=== PATIENT | female | born 1945 | race Caucasian/White ===

== ENCOUNTER 2016-06-24 11:59 | Inpatient (IN) | payer OTHER ==
[~2016-06-24] VITALS: Ht 162.6 cm; Wt 81.4 kg
[~2016-06-24 11:59] MED LIST: Advair 100/50 Diskus IH; Coumadin,Jantoven PO; Dexilant,Kapidex PO; Miralax, Glycolax PO; Oscal 250 w/Vitamin PO; Percocet 5/325,Endoc PO; Pravachol PO; Toprol XL PO; [UNRECOGNIZED DRUG - OTHER] PO; celeBREX PO
[2016-06-24 13:43] LABS: TROP-I INTERPRETATION NEGATIVE; TROPONIN-I 0.02 ng/mL (0.0-0.30)
[2016-06-24 14:13] LABS: HEMATOCRIT 31.3 % (36.0-46.0); MCH 28.9 PG (29.0-34.0); MCHC 31.6 G/DL (30.0-36.0); MCV 91.5 FL (83-99); MEAN PLAT.VOLUME 12.3 uM^3 (9.5-12.4); PLATELET COUNT 249 K/uL (156-360); RBC DIS.WIDTH-CV 22.5 % (11.8-14.6); RBC DIS.WIDTH-SD 65.5 % (39-53); RED BLOOD COUNT 3.42 M/uL (3.80-5.20); WHITE BLOOD COUNT 12.3 K/uL (4.1-10.2)
[2016-06-24 14:29] LABS: EOSINOPHIL (%) 0.2 % (0-5); IMMATURE GRANULOCYTE (%) 1.7 % (0.0-0.7); IMMATURE GRANULOCYTE COUNT 0.2 K/uL; INSTRUMENT ABS NEUTROPHIL CT 10.1 K/uL; LYMPHOCYTE COUNT 0.8 K/uL (1.0-2.8); MONOCYTE (%) 9.1 % (3-12); MONOCYTE COUNT 1.1 K/uL (0-0.8); NEUTROPHIL (%) 82.4 % (45-76); NEUTROPHIL COUNT 10.1 K/uL (1.8-6.4)
[2016-06-24 15:35] LABS: CHLORIDE 125 mEq/L (99-109); POTASSIUM 3.1 mEq/L (3.7-5.4); SODIUM 158 mEq/L (136-147)
[2016-06-24 15:37] LABS: GLUCOSE 144 mg/dL (70-99)
[2016-06-24 15:38] LABS: ANION GAP 11 MEQ/L (2-14)
[2016-06-24 15:39] LABS: TOTAL BILIRUBIN 0.4 mg/dL (0.0-1.0)
[2016-06-24 15:40] LABS: ALKALINE PHOSPHATASE 185 IU/L (3-129)
[2016-06-24 15:41] LABS: GFR ESTIMATE (CALCULATED) 47 mL/min/
[2016-06-24 15:42] LABS: UREA NITROGEN (BUN) 52 mg/dL (9-23)
[2016-06-24 15:44] LABS: LIPASE 34 U/L (1.0-51.0)
[2016-06-24] MEDS ORDERED: ZOSYN 3.3753.375 GM IV (17:15)
[2016-06-24] MEDS ORDERED: FLAGYL500 MG/100 IV (17:16)
[2016-06-24] MEDS ORDERED: METOPROLOL TART25 MG PO (17:17)
[2016-06-24] MEDS ORDERED: TRAMADOL HCL50 MG PO (17:18)
[2016-06-24] MEDS ORDERED: CARDIZEM30 MG PO (17:19)
[2016-06-24] MEDS ORDERED: POTASSIUM20 MEQ/11 PO (17:20)
[2016-06-24] MEDS ORDERED: METOCLOPRAM5 MG/5 ML PO (17:20)
[2016-06-24] MEDS ORDERED: PRAVASTATIN SOD40 MG GT (17:21)
[2016-06-24] MEDS ORDERED: ELIQUIS5 MG PO (17:21)
[2016-06-24] MEDS ORDERED: CALCITRATE + D1 EACH PO (17:22)
[2016-06-24] MEDS ORDERED: PRAVACHOL40 MG PO (17:22)
[2016-06-24] MEDS ORDERED: MULTAQ400 MG PO (17:23)
[2016-06-24] MEDS ORDERED: DEXILANT60 MG PO (17:23)
[2016-06-24] MEDS ORDERED: LINZESS290 MCG PO (17:24)
[2016-06-24] MEDS ORDERED: ACETAMINOPHEN325 M3 PO (17:24)
[2016-06-24] MEDS ORDERED: ALBUTEROL2.5 MG/3 M IH (17:25)
[2016-06-24] MEDS ORDERED: ADVAIR 250/501 DISK IH (17:25)
[2016-06-24] MEDS ORDERED: [UNRECOGNIZED DRUG - SUPPLY] TP (17:26)
[2016-06-24] MEDS ORDERED: SANTYL30 GM TP (17:26)
[2016-06-24] MEDS ORDERED: AQUAPHOR OINTM105 GM TP (17:27)
[2016-06-24] MEDS ORDERED: CALMOSEPTINE O120 GM TP (17:27)
[2016-06-24] MEDS ORDERED: CASPOFUNGIN IV (18:31)
[2016-06-24 23:40] VITALS: BP 126/66
[2016-06-25 03:56] LABS: ADD MIUA? YES; BILIRUBIN NEGATIVE; BLOOD MODERATE; COLOR YELLOW ((YELLOW)); GLUCOSE (STRIP) NEGATIVE; KETONES NEGATIVE; LEUKOCYTES NEGATIVE; NITRITE NEGATIVE; PROTEIN (STRIP) NEGATIVE; SPECIFIC GRAVITY 1.011 (1.000-1.030); UROBILINOGEN 0.2 MG/DL (0.2-1.0)
[2016-06-25 04:10] LABS: BACTERIA NONE SEEN /HPF; EPITHELIAL CELLS RARE /HPF; HYALINE CASTS 0-5 /LPF; MUCUS TRACE /LPF; RED BLOOD CELLS 0-5 /HPF (0-5); UCUL ADDED? NO; WHITE BLOOD CELLS 0-5 /HPF (0-5)
[2016-06-25 04:30] LABS: INFLUENZA A VIRAL ANTIGEN NEGATIVE; INFLUENZA B VIRAL ANTIGEN NEGATIVE
[2016-06-25 07:30] VITALS: BP 191/86
[2016-06-25 08:35] LABS: INTERNAL CONTROL VALID? YES
[2016-06-25 09:40] LABS: EOSINOPHIL (%) 0.5 % (0-5); EOSINOPHIL COUNT 0.1 K/uL (0-0.3); HEMATOCRIT 30.7 % (36.0-46.0); IMMATURE GRANULOCYTE (%) 1.4 % (0.0-0.7); IMMATURE GRANULOCYTE COUNT 0.2 K/uL; INSTRUMENT ABS NEUTROPHIL CT 10.4 K/uL; LYMPHOCYTE COUNT 0.9 K/uL (1.0-2.8); MCH 29.4 PG (29.0-34.0); MCHC 31.6 G/DL (30.0-36.0); MEAN PLAT.VOLUME 12.3 uM^3 (9.5-12.4); MONOCYTE (%) 11.7 % (3-12); MONOCYTE COUNT 1.5 K/uL (0-0.8); NEUTROPHIL (%) 79.6 % (45-76); NEUTROPHIL COUNT 10.4 K/uL (1.8-6.4); PLATELET COUNT 245 K/uL (156-360); RBC DIS.WIDTH-CV 22.9 % (11.8-14.6); RBC DIS.WIDTH-SD 70.4 % (39-53)
[2016-06-25 09:54] LABS: CHLORIDE 125 mEq/L (99-109); POTASSIUM 3.4 mEq/L (3.7-5.4); SODIUM 160 mEq/L (136-147)
[2016-06-25 09:56] LABS: GLUCOSE 165 mg/dL (70-99)
[2016-06-25 09:57] LABS: ANION GAP 13 MEQ/L (2-14)
[2016-06-25 10:00] LABS: GFR ESTIMATE (CALCULATED) 47 mL/min/
[2016-06-25 10:01] LABS: UREA NITROGEN (BUN) 48 mg/dL (9-23)
[2016-06-25 15:20] VITALS: BP 180/80
[2016-06-25 18:45] LABS: CHLORIDE 125 mEq/L (99-109); POTASSIUM 3.3 mEq/L (3.7-5.4); SODIUM 157 mEq/L (136-147)
[2016-06-25 18:47] LABS: GLUCOSE 165 mg/dL (70-99)
[2016-06-25 18:48] LABS: ANION GAP 11 MEQ/L (2-14)
[2016-06-25 18:51] LABS: GFR ESTIMATE (CALCULATED) 47 mL/min/; UREA NITROGEN (BUN) 46 mg/dL (9-23)
[2016-06-26] VITALS: BP 168/71
[2016-06-26 06:56] VITALS: BP 175/74
[2016-06-26 07:34] LABS: EOSINOPHIL (%) 1.4 % (0-5); EOSINOPHIL COUNT 0.2 K/uL (0-0.3); HEMATOCRIT 29.9 % (36.0-46.0); IMMATURE GRANULOCYTE (%) 1.5 % (0.0-0.7); IMMATURE GRANULOCYTE COUNT 0.2 K/uL; INSTRUMENT ABS NEUTROPHIL CT 9.5 K/uL; LYMPHOCYTE COUNT 0.9 K/uL (1.0-2.8); MCH 28.7 PG (29.0-34.0); MCHC 30.1 G/DL (30.0-36.0); MCV 95.2 FL (83-99); MEAN PLAT.VOLUME 12.3 uM^3 (9.5-12.4); MONOCYTE (%) 13.5 % (3-12); MONOCYTE COUNT 1.7 K/uL (0-0.8); NEUTROPHIL (%) 76.2 % (45-76); NEUTROPHIL COUNT 9.5 K/uL (1.8-6.4); PLATELET COUNT 221 K/uL (156-360); RBC DIS.WIDTH-CV 22.6 % (11.8-14.6); RBC DIS.WIDTH-SD 75.2 % (39-53); RED BLOOD COUNT 3.14 M/uL (3.80-5.20); WHITE BLOOD COUNT 12.4 K/uL (4.1-10.2)
[2016-06-26 07:45] LABS: ANION GAP 9 MEQ/L (2-14); CHLORIDE 119 MEQ/L (99-109); GFR ESTIMATE (CALCULATED) 47 mL/min/; GLUCOSE 178 mg/dL (70-99); MAGNESIUM 1.6 mg/dl (1.3-2.7); POTASSIUM 3.9 MEQ/L (3.7-5.4); SAMPLE HEMOLYSIS CHECK 0; SAMPLE ICTERIC CHECK 0; SAMPLE LIPEMIA CHECK 0; SODIUM 151 MEQ/L (136-147); UREA NITROGEN (BUN) 46 mg/dL (9-23)
[2016-06-26 17:19] VITALS: BP 178/80
[2016-06-26 23:01] VITALS: BP 179/89
[2016-06-27 09:11] VITALS: BP 120/72
[2016-06-27 11:07] LABS: EOSINOPHIL (%) 0.4 % (0-5); EOSINOPHIL COUNT 0.1 K/uL (0-0.3); HEMATOCRIT 30.5 % (36.0-46.0); IMMATURE GRANULOCYTE (%) 1.5 % (0.0-0.7); IMMATURE GRANULOCYTE COUNT 0.2 K/uL; INSTRUMENT ABS NEUTROPHIL CT 10.9 K/uL; LYMPHOCYTE COUNT 0.7 K/uL (1.0-2.8); MCH 29.6 PG (29.0-34.0); MCHC 31.5 G/DL (30.0-36.0); MCV 94.1 FL (83-99); MEAN PLAT.VOLUME 12.4 uM^3 (9.5-12.4); MONOCYTE COUNT 1.2 K/uL (0-0.8); NEUTROPHIL (%) 83.2 % (45-76); NEUTROPHIL COUNT 10.9 K/uL (1.8-6.4); PLATELET COUNT 210 K/uL (156-360); RBC DIS.WIDTH-CV 22.1 % (11.8-14.6); RBC DIS.WIDTH-SD 71.7 % (39-53); RED BLOOD COUNT 3.24 M/uL (3.80-5.20); WHITE BLOOD COUNT 13.1 K/uL (4.1-10.2)
[2016-06-27 11:28] LABS: ANION GAP 14 MEQ/L (2-14); C-REACTIVE PROTEIN 11.6 MG/L (0-10); CHLORIDE 116 MEQ/L (99-109); GFR ESTIMATE (CALCULATED) 47 mL/min/; GLUCOSE 238 mg/dL (70-99); POTASSIUM 3.9 MEQ/L (3.7-5.4); SAMPLE HEMOLYSIS CHECK 0; SAMPLE ICTERIC CHECK 0; SAMPLE LIPEMIA CHECK 0; SODIUM 150 MEQ/L (136-147); UREA NITROGEN (BUN) 36 mg/dL (9-23)
[2016-06-27 12:36] VITALS: BP 122/63
[2016-06-27 16:03] VITALS: BP 116/70
[2016-06-28 00:02] VITALS: BP 119/60
[2016-06-28 01:30] VITALS: BP 125/68
[2016-06-28 06:52] LABS: ANION GAP 10 MEQ/L (2-14); CHLORIDE 112 MEQ/L (99-109); GFR ESTIMATE (CALCULATED) 52 mL/min/; GLUCOSE 134 mg/dL (70-99); POTASSIUM 3.6 MEQ/L (3.7-5.4); SAMPLE HEMOLYSIS CHECK 1; SAMPLE ICTERIC CHECK 0; SAMPLE LIPEMIA CHECK 0; SODIUM 146 MEQ/L (136-147); UREA NITROGEN (BUN) 30 mg/dL (9-23)
[2016-06-28 08:25] VITALS: BP 142/69
[2016-06-28 09:55] VITALS: BP 121/57
[2016-06-28 10:19] LABS: HEMATOCRIT 31.6 % (36.0-46.0); MCH 28.9 PG (29.0-34.0); MCHC 31.3 G/DL (30.0-36.0); MCV 92.1 FL (83-99); RBC DIS.WIDTH-CV 22.1 % (11.8-14.6); RBC DIS.WIDTH-SD 71.9 % (39-53); RED BLOOD COUNT 3.43 M/uL (3.80-5.20); WHITE BLOOD COUNT 10.6 K/uL (4.1-10.2)
[2016-06-28 10:29] LABS: EOSINOPHIL (%) 1.2 % (0-5); EOSINOPHIL COUNT 0.1 K/uL (0-0.3); IMMATURE GRANULOCYTE (%) 1.7 % (0.0-0.7); IMMATURE GRANULOCYTE COUNT 0.2 K/uL; INSTRUMENT ABS NEUTROPHIL CT 8.1 K/uL; LYMPHOCYTE COUNT 0.9 K/uL (1.0-2.8); MEAN PLAT.VOLUME 12.2 uM^3 (9.5-12.4); MONOCYTE (%) 11.8 % (3-12); MONOCYTE COUNT 1.3 K/uL (0-0.8); NEUTROPHIL (%) 76.4 % (45-76); NEUTROPHIL COUNT 8.1 K/uL (1.8-6.4)
[2016-06-28 10:30] LABS: PLATELET COUNT 127 K/uL (156-360)
[2016-06-28 13:38] LABS: TROP-I INTERPRETATION NEGATIVE; TROPONIN-I < 0.01 ng/mL (0.0-0.30)
[2016-06-28 15:15] VITALS: BP 166/74
[2016-06-28 16:49] LABS: TROP-I INTERPRETATION NEGATIVE; TROPONIN-I 0.02 ng/mL (0.0-0.30)
[2016-06-28 23:09] LABS: TROP-I INTERPRETATION NEGATIVE; TROPONIN-I 0.01 ng/mL (0.0-0.30)
[2016-06-28 23:24] VITALS: BP 128/68
[2016-06-29 07:09] VITALS: BP 155/72
[2016-06-29 08:40] LABS: EOSINOPHIL (%) 1.9 % (0-5); EOSINOPHIL COUNT 0.2 K/uL (0-0.3); HEMATOCRIT 29.2 % (36.0-46.0); IMMATURE GRANULOCYTE (%) 1.5 % (0.0-0.7); IMMATURE GRANULOCYTE COUNT 0.2 K/uL; INSTRUMENT ABS NEUTROPHIL CT 8.6 K/uL; LYMPHOCYTE COUNT 0.9 K/uL (1.0-2.8); MCH 29.5 PG (29.0-34.0); MCHC 31.5 G/DL (30.0-36.0); MCV 93.6 FL (83-99); MONOCYTE (%) 13.8 % (3-12); MONOCYTE COUNT 1.6 K/uL (0-0.8); NEUTROPHIL (%) 74.8 % (45-76); NEUTROPHIL COUNT 8.6 K/uL (1.8-6.4); RBC DIS.WIDTH-CV 21.3 % (11.8-14.6); RBC DIS.WIDTH-SD 71.3 % (39-53); RED BLOOD COUNT 3.12 M/uL (3.80-5.20); WHITE BLOOD COUNT 11.5 K/uL (4.1-10.2)
[2016-06-29 08:41] LABS: PLATELET COUNT 171 K/uL (156-360)
[2016-06-29 08:52] LABS: ANION GAP 11 MEQ/L (2-14); CHLORIDE 107 MEQ/L (99-109); GFR ESTIMATE (CALCULATED) 58 mL/min/; GLUCOSE 149 mg/dL (70-99); POTASSIUM 3.5 MEQ/L (3.7-5.4); SAMPLE HEMOLYSIS CHECK 0; SAMPLE ICTERIC CHECK 0; SAMPLE LIPEMIA CHECK 0; SODIUM 143 MEQ/L (136-147); UREA NITROGEN (BUN) 22 mg/dL (9-23)
[2016-06-29] MEDS ORDERED: METRONIDAZOLE500 MG PO (10:58)
[2016-06-29] MEDS ORDERED: TRAMADOL HCL50 MG PO (11:05)
[2016-06-29 15:46] VITALS: BP 135/77
== END 2016-06-29 16:45 | DRG 357 ==
LOC: EME 11:59 → EDOF 22:08 → 5EAST 22:08
PROVIDERS: Emergency Medicine; Hospitalist; Internal Medicine; Internal Medicine Infectious Disease; Internal Medicine Nephrology
DX: K65.1 Peritoneal abscess (principal); N17.9 Acute kidney failure, unspecified; J90 Pleural effusion, not elsewhere classified; E46 Unspecified protein-calorie malnutrition; E87.1 Hypo-osmolality and hyponatremia; G72.9 Myopathy, unspecified; Z93.1 Gastrostomy status; I48.2 Chronic atrial fibrillation; E87.0 Hyperosmolality and hypernatremia; R13.10 Dysphagia, unspecified; R07.9 Chest pain, unspecified; I48.91 Unspecified atrial fibrillation; I10 Essential (primary) hypertension; E87.6 Hypokalemia; D64.9 Anemia, unspecified; J45.909 Unspecified asthma, uncomplicated; K21.9 Gastro-esophageal reflux disease without esophagitis; D72.829 Elevated white blood cell count, unspecified; J98.11 Atelectasis; Z93.3 Colostomy status; Z98.0 Intestinal bypass and anastomosis status
CPT/HCPCS: 71010; 71275; 74177; 74230; 76770; 80048; 80048 91; 80053; 81003; 83605; 83690; 83735; 83935; 84100; 84145 90; 84300; 84484; 85025; 85025 GA; 86140; 87040; 87070; 87205; 87449; 87502; 92526 GN; 92610 GN; 92611 GN; 93005; 94010; 94640; 94640 76; 94760; 99202; 99281; 99285; J0456; J0692; J2543; J3370; J3480; J7040; J7050; J7060; J7070; S0030

== ENCOUNTER 2016-07-12 12:12 | Inpatient (IN) | payer OTHER ==
[~2016-07-12] VITALS: Ht 162.6 cm; Wt 73.4 kg
[~2016-07-12 12:12] MED LIST changes: +ACETAMINOPHEN325 M3 PO; +ADVAIR 250/501 DISK IH; +ALBUTEROL2.5 MG/3 M IH; +AQUAPHOR OINTM105 GM TP; +CALCITRATE + D1 EACH PO; +CALMOSEPTINE O120 GM TP; +CARDIZEM30 MG PO; +CASPOFUNGIN IV; +DEXILANT60 MG PO; +ELIQUIS5 MG PO; +FLAGYL500 MG/100 IV; +LINZESS290 MCG PO; +METOCLOPRAM5 MG/5 ML PO; +METOPROLOL TART25 MG PO; +METRONIDAZOLE500 MG PO; +MULTAQ400 MG PO; +POTASSIUM20 MEQ/11 PO; +PRAVACHOL40 MG PO; +PRAVASTATIN SOD40 MG GT; +SANTYL30 GM TP; +TRAMADOL HCL50 MG PO; +ZOSYN 3.3753.375 GM IV; +[UNRECOGNIZED DRUG - SUPPLY] TP
[2016-07-12 13:30] LABS: EOSINOPHIL (%) 0 % (0-5); HEMATOCRIT 29.8 % (36.0-46.0); IMMATURE GRANULOCYTE (%) 3.1 % (0.0-0.7); IMMATURE GRANULOCYTE COUNT 0.4 K/uL; INSTRUMENT ABS NEUTROPHIL CT 10.6 K/uL; LYMPHOCYTE COUNT 0.8 K/uL (1.0-2.8); MCH 29.1 PG (29.0-34.0); MCHC 30.5 G/DL (30.0-36.0); MCV 95.2 FL (83-99); MEAN PLAT.VOLUME 10.1 uM^3 (9.5-12.4); MONOCYTE (%) 11.4 % (3-12); MONOCYTE COUNT 1.5 K/uL (0-0.8); NEUTROPHIL (%) 79.4 % (45-76); NEUTROPHIL COUNT 10.6 K/uL (1.8-6.4); RBC DIS.WIDTH-CV 19.5 % (11.8-14.6); RBC DIS.WIDTH-SD 67.6 % (39-53); RED BLOOD COUNT 3.13 M/uL (3.80-5.20); WHITE BLOOD COUNT 13.3 K/uL (4.1-10.2)
[2016-07-12 13:31] LABS: PLATELET COUNT 234 K/uL (156-360)
[2016-07-12 13:36] LABS: CHLORIDE 103 mEq/L (99-109); POTASSIUM 5.2 mEq/L (3.7-5.4); SODIUM 137 mEq/L (136-147)
[2016-07-12 13:38] LABS: GLUCOSE 197 mg/dL (70-99)
[2016-07-12 13:39] LABS: ANION GAP 8 MEQ/L (2-14)
[2016-07-12 13:42] LABS: GFR ESTIMATE (CALCULATED) > 59 mL/min/
[2016-07-12 13:43] LABS: UREA NITROGEN (BUN) 19 mg/dL (9-23)
[2016-07-12 14:40] LABS: ADD MIUA? YES; BILIRUBIN NEGATIVE; BLOOD NEGATIVE; COLOR YELLOW ((YELLOW)); GLUCOSE (STRIP) 50; KETONES NEGATIVE; LEUKOCYTES NEGATIVE; NITRITE NEGATIVE; PROTEIN (STRIP) 100; SPECIFIC GRAVITY 1.024 (1.000-1.030); UROBILINOGEN 0.2 MG/DL (0.2-1.0)
[2016-07-12 14:47] LABS: BACTERIA RARE /HPF; EPITHELIAL CELLS RARE /HPF; HYALINE CASTS 20-30 /LPF; MUCUS TRACE /LPF; UCUL ADDED? NO; WHITE BLOOD CELLS 0-5 /HPF (0-5)
[2016-07-12 15:01] LABS: TROP-I INTERPRETATION NEGATIVE; TROPONIN-I < 0.01 ng/mL (0.0-0.30)
[2016-07-12] MEDS ORDERED: AQUAPHOR W-NAT50 GM TP (16:56)
[2016-07-12] MEDS ORDERED: CALMOSEPTINE O120 GM TP (16:57)
[2016-07-12] MEDS ORDERED: METOPROLOL TART50 MG PO (16:58)
[2016-07-12] MEDS ORDERED: MYCAMINE100 MG IV (17:00)
[2016-07-12] MEDS ORDERED: ASCORBIC ACID500 MG PO (17:04)
[2016-07-12] MEDS ORDERED: ZINC SULFATE220 M1 PO (17:04)
[2016-07-12] MEDS ORDERED: METOCLOPRAMIDE H5 MG PO (17:06)
[2016-07-12] MEDS ORDERED: K-DUR20 MEQ PO (17:06)
[2016-07-12] MEDS ORDERED: ZOSYN 3.3753.375 GM IV (17:07)
[2016-07-12] MEDS ORDERED: ACETAMINOPHEN325 M1 PO (17:10)
[2016-07-12] MEDS ORDERED: [UNRECOGNIZED DRUG - OTHER] TP (17:14)
[2016-07-12] MEDS ORDERED: ANTIBIOTIC TP (17:14)
[2016-07-12] MEDS ORDERED: ADVAIR 250/501 DISK IH (17:15)
[2016-07-12] MEDS ORDERED: ENSURE ENLIVE237 ML PO (17:15)
[2016-07-12 18:32] LABS: MAGNESIUM 1.4 mg/dL (1.3-2.7)
[2016-07-12 21:00] VITALS: BP 163/88
[2016-07-12 22:00] VITALS: BP 155/76
[2016-07-12 23:00] VITALS: BP 156/82
[2016-07-12 23:12] LABS: METH RESISTANT S AUREUS PCR NEGATIVE (NEGATIVE)
[2016-07-12 23:12] LABS: TROP-I INTERPRETATION NEGATIVE; TROPONIN-I < 0.01 ng/mL (0.0-0.30)
[2016-07-12 23:15] LABS: PROBE CHECK PASS; SPECIMEN PROCESSING CONTROL PASS
[2016-07-13] VITALS (8 sets, daily range): BP systolic 125–159; BP diastolic 55–86
[2016-07-13 04:04] LABS: HEMATOCRIT 28.4 % (36.0-46.0); MCH 29.3 PG (29.0-34.0); MCV 94.7 FL (83-99); MEAN PLAT.VOLUME 10.8 uM^3 (9.5-12.4); PLATELET COUNT 208 K/uL (156-360); RBC DIS.WIDTH-CV 19.9 % (11.8-14.6); RBC DIS.WIDTH-SD 68.6 % (39-53); WHITE BLOOD COUNT 9.8 K/uL (4.1-10.2)
[2016-07-13 04:28] LABS: TROP-I INTERPRETATION NEGATIVE; TROPONIN-I 0.03 ng/mL (0.0-0.30)
[2016-07-13 05:09] LABS: CHLORIDE 100 mEq/L (99-109); SODIUM 139 mEq/L (136-147)
[2016-07-13 05:11] LABS: GLUCOSE 126 mg/dL (70-99)
[2016-07-13 05:12] LABS: ANION GAP 9 MEQ/L (2-14)
[2016-07-13 05:13] LABS: TOTAL BILIRUBIN 0.3 mg/dL (0.0-1.0)
[2016-07-13 05:14] LABS: ALKALINE PHOSPHATASE 141 IU/L (3-129)
[2016-07-13 05:15] LABS: GFR ESTIMATE (CALCULATED) > 59 mL/min/; POTASSIUM 3.9 mEq/L (3.7-5.4)
[2016-07-13 05:16] LABS: UREA NITROGEN (BUN) 18 mg/dL (9-23)
[2016-07-14] VITALS (7 sets, daily range): BP systolic 136–169; BP diastolic 62–87
[2016-07-14 05:44] LABS: C DIFF TOXIN NEGATIVE (NEGATIVE)
[2016-07-14 05:45] LABS: PROBE CHECK PASS; SPECIMEN PROCESSING CONTROL PASS
[2016-07-14 07:04] LABS: EOSINOPHIL (%) 1.3 % (0-5); EOSINOPHIL COUNT 0.1 K/uL (0-0.3); HEMATOCRIT 26.2 % (36.0-46.0); IMMATURE GRANULOCYTE (%) 2.7 % (0.0-0.7); IMMATURE GRANULOCYTE COUNT 0.3 K/uL; INSTRUMENT ABS NEUTROPHIL CT 7.5 K/uL; LYMPHOCYTE COUNT 0.9 K/uL (1.0-2.8); MCH 29.5 PG (29.0-34.0); MCHC 31.7 G/DL (30.0-36.0); MCV 93.2 FL (83-99); MEAN PLAT.VOLUME 10.5 uM^3 (9.5-12.4); MONOCYTE COUNT 1.4 K/uL (0-0.8); NEUTROPHIL (%) 73.3 % (45-76); NEUTROPHIL COUNT 7.5 K/uL (1.8-6.4); PLATELET COUNT 231 K/uL (156-360); RBC DIS.WIDTH-CV 19.5 % (11.8-14.6); RBC DIS.WIDTH-SD 65.6 % (39-53); RED BLOOD COUNT 2.81 M/uL (3.80-5.20); WHITE BLOOD COUNT 10.2 K/uL (4.1-10.2)
[2016-07-14 07:49] LABS: ANION GAP 12 MEQ/L (2-14); CHLORIDE 97 MEQ/L (99-109); GFR ESTIMATE (CALCULATED) > 59 mL/min/; GLUCOSE 119 mg/dL (70-99); POTASSIUM 3.6 MEQ/L (3.7-5.4); SAMPLE HEMOLYSIS CHECK 0; SAMPLE ICTERIC CHECK 0; SAMPLE LIPEMIA CHECK 0; SODIUM 139 MEQ/L (136-147); UREA NITROGEN (BUN) 20 mg/dL (9-23)
[2016-07-14 09:53] LABS: INTER. NORMALIZED RATIO 1.2; PROTHROMBIN TIME 12.1 (9.2-11.2); PTT 25.1 (25-32)
[2016-07-15] VITALS (8 sets, daily range): BP systolic 130–162; BP diastolic 62–90
[2016-07-15 05:55] LABS: EOSINOPHIL (%) 0.4 % (0-5); HEMATOCRIT 26.9 % (36.0-46.0); IMMATURE GRANULOCYTE (%) 2.5 % (0.0-0.7); IMMATURE GRANULOCYTE COUNT 0.3 K/uL; INSTRUMENT ABS NEUTROPHIL CT 8.4 K/uL; MCH 30.4 PG (29.0-34.0); MCHC 33.1 G/DL (30.0-36.0); MCV 91.8 FL (83-99); MEAN PLAT.VOLUME 10.2 uM^3 (9.5-12.4); MONOCYTE (%) 14.4 % (3-12); MONOCYTE COUNT 1.6 K/uL (0-0.8); NEUTROPHIL (%) 74.1 % (45-76); NEUTROPHIL COUNT 8.4 K/uL (1.8-6.4); PLATELET COUNT 247 K/uL (156-360); RBC DIS.WIDTH-CV 19.6 % (11.8-14.6); RBC DIS.WIDTH-SD 63.7 % (39-53); RED BLOOD COUNT 2.93 M/uL (3.80-5.20); WHITE BLOOD COUNT 11.3 K/uL (4.1-10.2)
[2016-07-15 06:24] LABS: ANION GAP 12 MEQ/L (2-14); CHLORIDE 96 MEQ/L (99-109); GFR ESTIMATE (CALCULATED) > 59 mL/min/; GLUCOSE 141 mg/dL (70-99); POTASSIUM 3.2 MEQ/L (3.7-5.4); SAMPLE HEMOLYSIS CHECK 0; SAMPLE ICTERIC CHECK 0; SAMPLE LIPEMIA CHECK 0; SODIUM 141 MEQ/L (136-147); UREA NITROGEN (BUN) 14 mg/dL (9-23)
[2016-07-15 10:56] LABS: TYPE OF FLUID PLEURAL
[2016-07-15 11:51] LABS: BODY FLUID RBC'S 14000 /MM^3 (0-100); BODY FLUID WBC'S 666 /MM^3 (0-500)
[2016-07-15 11:52] LABS: BODY FLUID EOSINOPHILS 1 % (0-25); MONONUCLEAR WBC'S 74 %; POLYNUCLEAR WBC'S 25 % (0-25)
[2016-07-15 12:04] LABS: BODY FLUID LDH 119 IU/L; BODY FLUID PROTEIN < 3.0 G/DL
[2016-07-16 00:47] VITALS: BP 150/78
[2016-07-16 03:59] VITALS: BP 141/56
[2016-07-16 05:50] LABS: HEMATOCRIT 31.2 % (36.0-46.0); MCH 29.9 PG (29.0-34.0); MCHC 32.1 G/DL (30.0-36.0); MCV 93.1 FL (83-99); MEAN PLAT.VOLUME 10.3 uM^3 (9.5-12.4); PLATELET COUNT 248 K/uL (156-360); RBC DIS.WIDTH-SD 67.2 % (39-53); RED BLOOD COUNT 3.35 M/uL (3.80-5.20); WHITE BLOOD COUNT 11.6 K/uL (4.1-10.2)
[2016-07-16 06:21] LABS: ANION GAP 12 MEQ/L (2-14); CHLORIDE 97 MEQ/L (99-109); GFR ESTIMATE (CALCULATED) > 59 mL/min/; GLUCOSE 124 mg/dL (70-99); SAMPLE HEMOLYSIS CHECK 0; SAMPLE ICTERIC CHECK 0; SAMPLE LIPEMIA CHECK 0; SODIUM 140 MEQ/L (136-147); UREA NITROGEN (BUN) 10 mg/dL (9-23)
[2016-07-16 06:26] LABS: POTASSIUM 3.9 MEQ/L (3.7-5.4)
[2016-07-16 07:15] VITALS: BP 156/68
[2016-07-16 11:30] VITALS: BP 157/80
[2016-07-16 16:57] VITALS: BP 136/78
[2016-07-17 00:01] VITALS: BP 156/84
[2016-07-17 04:23] VITALS: BP 143/76
[2016-07-17 05:29] LABS: HEMATOCRIT 28.2 % (36.0-46.0); MCHC 32.6 G/DL (30.0-36.0); MCV 91.9 FL (83-99); MEAN PLAT.VOLUME 10.6 uM^3 (9.5-12.4); PLATELET COUNT 253 K/uL (156-360); RBC DIS.WIDTH-CV 19.9 % (11.8-14.6); RBC DIS.WIDTH-SD 65.2 % (39-53); RED BLOOD COUNT 3.07 M/uL (3.80-5.20); WHITE BLOOD COUNT 11.7 K/uL (4.1-10.2)
[2016-07-17 05:59] LABS: ANION GAP 11 MEQ/L (2-14); CHLORIDE 97 MEQ/L (99-109); GFR ESTIMATE (CALCULATED) > 59 mL/min/; GLUCOSE 122 mg/dL (70-99); SAMPLE HEMOLYSIS CHECK 0; SAMPLE ICTERIC CHECK 0; SAMPLE LIPEMIA CHECK 0; SODIUM 137 MEQ/L (136-147); UREA NITROGEN (BUN) 9 mg/dL (9-23)
[2016-07-17 07:48] VITALS: BP 154/70
[2016-07-17 09:01] LABS: MAGNESIUM 1.3 mg/dl (1.3-2.7)
[2016-07-17 12:46] VITALS: BP 132/69
[2016-07-17 15:30] VITALS: BP 125/71
[2016-07-17 20:14] VITALS: BP 147/76
[2016-07-18] VITALS (10 sets, daily range): BP systolic 132–169; BP diastolic 72–97
[2016-07-18 06:02] LABS: HEMATOCRIT 26.5 % (36.0-46.0); MCH 30.5 PG (29.0-34.0); MCHC 32.8 G/DL (30.0-36.0); MEAN PLAT.VOLUME 10.5 uM^3 (9.5-12.4); PLATELET COUNT 271 K/uL (156-360); RBC DIS.WIDTH-CV 19.9 % (11.8-14.6); RBC DIS.WIDTH-SD 66.8 % (39-53); RED BLOOD COUNT 2.85 M/uL (3.80-5.20); WHITE BLOOD COUNT 10.5 K/uL (4.1-10.2)
[2016-07-18 06:55] LABS: ANION GAP 11 MEQ/L (2-14); CHLORIDE 99 MEQ/L (99-109); GFR ESTIMATE (CALCULATED) > 59 mL/min/; GLUCOSE 143 mg/dL (70-99); SAMPLE HEMOLYSIS CHECK 0; SAMPLE ICTERIC CHECK 0; SAMPLE LIPEMIA CHECK 0; SODIUM 138 MEQ/L (136-147); UREA NITROGEN (BUN) 11 mg/dL (9-23)
[2016-07-18 06:58] LABS: POTASSIUM 3.8 MEQ/L (3.7-5.4)
[2016-07-18] MEDS ORDERED: ELIQUIS5 MG PO (09:01)
[2016-07-18] MEDS ORDERED: K-DUR20 MEQ PO (09:01)
[2016-07-18] MEDS ORDERED: DIGOXIN125 MCG PO (09:01)
[2016-07-18] MEDS ORDERED: MYCAMINE100 MG IV (09:01)
[2016-07-18] MEDS ORDERED: ZOSYN 3.3753.375 GM IV (09:01)
[2016-07-18] MEDS ORDERED: DILTIAZEM 24HR120 MG PO (09:01)
[2016-07-18] MEDS ORDERED: METOPROLOL TART75 MG PO (15:42)
[2016-07-18] MEDS ORDERED: CARDIZEM CD180 MG PO (15:43)
[2016-07-19 03:26] VITALS: BP 134/78
[2016-07-19 08:20] VITALS: BP 156/89
[2016-07-19 12:19] VITALS: BP 130/87
== END 2016-07-19 14:23 | DRG 308 ==
LOC: EME 12:12 → 5SOUTH 17:13 → 4EAST 17:13 → EDOF 17:13 → 4EAST 20:59 → 5SOUTH 07-17 14:44
PROVIDERS: Emergency Medicine; Hospitalist; Internal Medicine; Nurse Practitioner Family; Radiology Diagnostic Radiology
PROC: 0W9B3ZZ Drainage of Left Pleural Cavity, Percutaneous Approach (ICD-10-PCS; principal; 2016-07-12)
PROC: 30233N1 Transfusion of Nonautologous Red Blood Cells into Peripheral Vein, Percutaneous Approach (ICD-10-PCS; 2016-07-18)
DX: I48.2 Chronic atrial fibrillation (principal); I50.33 Acute on chronic diastolic (congestive) heart failure; K75.0 Abscess of liver; K65.1 Peritoneal abscess; J86.9 Pyothorax without fistula; G72.81 Critical illness myopathy; E87.2 Acidosis; T81.4XXA Infection following a procedure, initial encounter; T81.30XA Disruption of wound, unspecified, initial encounter; J45.909 Unspecified asthma, uncomplicated; I11.0 Hypertensive heart disease with heart failure; R18.8 Other ascites; K21.9 Gastro-esophageal reflux disease without esophagitis; J98.11 Atelectasis; D64.9 Anemia, unspecified; Z74.01 Bed confinement status; Z85.038 Personal history of other malignant neoplasm of large intestine; Z93.3 Colostomy status; Z79.01 Long term (current) use of anticoagulants; Z68.30 Body mass index [BMI] 30.0-30.9, adult
CPT/HCPCS: 71010; 71250; 74177; 80048; 80053; 81003; 82945; 83605; 83615 91; 83735; 84100; 84157; 84484; 85025; 85027; 85610; 85730; 86900; 86901; 86920; 87040; 87070; 87075; 87081; 87205; 87493; 87641; 88108; 88305; 89051; 93005; 93306; 93970; 94640; 94640 76; 94799; 97530 GO; 97530 GP; 99281; 99285; J1160; J1940; J2248; J2543; J2997; J3370; J3480; J7050; P9016

== ENCOUNTER → 2016-07-22 | Outpatient (CLI) | payer OTHER ==
[~2016-07-22] MED LIST changes: +ACETAMINOPHEN325 M1 PO; +ANTIBIOTIC TP; +AQUAPHOR W-NAT50 GM TP; +ASCORBIC ACID500 MG PO; +CARDIZEM CD180 MG PO; +DIGOXIN125 MCG PO; +DILTIAZEM 24HR120 MG PO; +ENSURE ENLIVE237 ML PO; +K-DUR20 MEQ PO; +METOCLOPRAMIDE H5 MG PO; +METOPROLOL TART50 MG PO; +METOPROLOL TART75 MG PO; +MYCAMINE100 MG IV; +ZINC SULFATE220 M1 PO; +[UNRECOGNIZED DRUG - OTHER] TP
== END | disposition home or self-care (01) ==
LOC: OPR 09:57 → EDSTATUS 13:30 → OPR 07-23 10:00
PROC: 0W9G3ZX Drainage of Peritoneal Cavity, Percutaneous Approach, Diagnostic (ICD-10-PCS; principal; 2016-07-22)
DX: K65.1 Peritoneal abscess (principal)
CPT/HCPCS: 77012; 87070; 87075; 87205; C1729; J3010

== ENCOUNTER 2016-09-25 09:37 | Observation (INO) | payer OTHER ==
[~2016-09-25] VITALS: Ht 163.8 cm; Wt 71.4 kg
[2016-09-25 12:12] LABS: EOSINOPHIL COUNT 0.2 K/uL (0-0.3); HEMATOCRIT 32.1 % (36.0-46.0); IMMATURE GRANULOCYTE (%) 1.9 % (0.0-0.7); IMMATURE GRANULOCYTE COUNT 0.2 K/uL; LYMPHOCYTE COUNT 1.4 K/uL (1.0-2.8); MCH 31.2 PG (29.0-34.0); MCHC 31.8 G/DL (30.0-36.0); MCV 98.2 FL (83-99); MEAN PLAT.VOLUME 10.7 uM^3 (9.5-12.4); MONOCYTE (%) 16.9 % (3-12); MONOCYTE COUNT 1.6 K/uL (0-0.8); NEUTROPHIL (%) 63.9 % (45-76); PLATELET COUNT 278 K/uL (156-360); RBC DIS.WIDTH-CV 13.7 % (11.8-14.6); RBC DIS.WIDTH-SD 49.6 % (39-53); RED BLOOD COUNT 3.27 M/uL (3.80-5.20); WHITE BLOOD COUNT 9.5 K/uL (4.1-10.2)
[2016-09-25 12:17] LABS: INTER. NORMALIZED RATIO 1.9; PROTHROMBIN TIME 21.4 SEC (10.2-12.9)
[2016-09-25 12:20] LABS: PTT 31.5 SEC (25-37)
[2016-09-25 12:30] LABS: CHLORIDE 103 mEq/L (99-109); POTASSIUM 4.8 mEq/L (3.7-5.4); SODIUM 137 mEq/L (136-147)
[2016-09-25 12:31] LABS: GLUCOSE 94 mg/dL (70-99)
[2016-09-25 12:33] LABS: ANION GAP 12 MEQ/L (2-14)
[2016-09-25 12:35] LABS: GFR ESTIMATE (CALCULATED) > 59 mL/min/
[2016-09-25 12:36] LABS: UREA NITROGEN (BUN) 32 mg/dL (9-23)
[2016-09-25 12:37] LABS: TROP-I INTERPRETATION NEGATIVE; TROPONIN-I < 0.01 ng/mL (0.0-0.30)
[2016-09-25 14:56] LABS: ADD MIUA? YES; BILIRUBIN NEGATIVE; BLOOD NEGATIVE; COLOR YELLOW ((YELLOW)); GLUCOSE (STRIP) NEGATIVE; KETONES NEGATIVE; LEUKOCYTES SMALL; NITRITE NEGATIVE; PROTEIN (STRIP) NEGATIVE; SPECIFIC GRAVITY 1.015 (1.000-1.030); UROBILINOGEN 0.2 MG/DL (0.2-1.0)
[2016-09-25 14:58] LABS: BACTERIA NONE SEEN /HPF; EPITHELIAL CELLS RARE /HPF; MUCUS NONE SEEN /LPF; RED BLOOD CELLS 0-5 /HPF (0-5); UCUL ADDED? NO; WHITE BLOOD CELLS 0-5 /HPF (0-5)
[2016-09-25] MEDS ORDERED: TRIAMCINOLONE A15 GM TP (15:54)
[2016-09-25] MEDS ORDERED: BENADRYL25 MG PO (15:55)
[2016-09-25] MEDS ORDERED: ALPRAZOLAM ER0.5 MG PO (15:55)
[2016-09-25] MEDS ORDERED: LOPRESSOR100 M1 PO (15:56)
[2016-09-25] MEDS ORDERED: CARDIZEM60 MG PO (15:57)
[2016-09-25] MEDS ORDERED: CERTAVITE WITH1 EAC1 PO (15:58)
[2016-09-25] MEDS ORDERED: MAG-OXIDE400 MG PO (15:59)
[2016-09-25] MEDS ORDERED: RANITIDINE15 MG/1 ML PO (16:00)
[2016-09-25] MEDS ORDERED: POTASSIUM20 MEQ/11 PO (16:01)
[2016-09-25] MEDS ORDERED: TRAMADOL HCL50 MG PO (16:01)
[2016-09-25] MEDS ORDERED: DIGOXIN125 MCG PO (16:02)
[2016-09-25] MEDS ORDERED: ELIQUIS5 MG PO (16:04)
[2016-09-25 19:17] VITALS: BP 110/82
[2016-09-25 20:22] LABS: TROP-I INTERPRETATION NEGATIVE; TROPONIN-I < 0.01 ng/mL (0.0-0.30)
[2016-09-26] VITALS (7 sets, daily range): BP systolic 105–129; BP diastolic 53–61
[2016-09-26 01:48] LABS: HEMATOCRIT 31.8 % (36.0-46.0); MCH 31.6 PG (29.0-34.0); MCHC 32.7 G/DL (30.0-36.0); MCV 96.7 FL (83-99); MEAN PLAT.VOLUME 10.3 uM^3 (9.5-12.4); PLATELET COUNT 282 K/uL (156-360); RBC DIS.WIDTH-CV 13.6 % (11.8-14.6); RBC DIS.WIDTH-SD 48.7 % (39-53); RED BLOOD COUNT 3.29 M/uL (3.80-5.20); WHITE BLOOD COUNT 7.7 K/uL (4.1-10.2)
[2016-09-26 02:05] LABS: CHLORIDE 103 mEq/L (99-109); POTASSIUM 4.2 mEq/L (3.7-5.4); SODIUM 136 mEq/L (136-147)
[2016-09-26 02:06] LABS: GLUCOSE 101 mg/dL (70-99)
[2016-09-26 02:08] LABS: ANION GAP 10 MEQ/L (2-14)
[2016-09-26 02:10] LABS: GFR ESTIMATE (CALCULATED) > 59 mL/min/; TROP-I INTERPRETATION NEGATIVE; TROPONIN-I < 0.01 ng/mL (0.0-0.30)
[2016-09-26 02:11] LABS: UREA NITROGEN (BUN) 28 mg/dL (9-23)
[2016-09-26 08:31] LABS: METH RESISTANT S AUREUS PCR NEGATIVE (NEGATIVE); PROBE CHECK PASS; SPECIMEN PROCESSING CONTROL PASS
== END 2016-09-26 15:23 ==
LOC: EME → EDBD 09:37 → EDOF 16:12 → 5WEST 16:12 → EDOF 16:17 → ENRESERV 16:18 → 5WEST 18:57
PROVIDERS: Emergency Medicine; Physician Assistant Medical
DX: R55 Syncope and collapse (principal); I48.2 Chronic atrial fibrillation; Z79.01 Long term (current) use of anticoagulants; E78.5 Hyperlipidemia, unspecified; F41.9 Anxiety disorder, unspecified; J98.9 Respiratory disorder, unspecified; K21.9 Gastro-esophageal reflux disease without esophagitis; Z86.19 Personal history of other infectious and parasitic diseases; D64.9 Anemia, unspecified; I10 Essential (primary) hypertension
CPT/HCPCS: 70450; 71010; 80048; 81003; 84484; 85025; 85027; 85610; 85730; 87077; 87086; 87641; 93005; 94640; 99281; 99285; G0378